=== PATIENT | female | born 1985 | race Hispanic/Latino ===

== ENCOUNTER → 2016-11-26 | Outpatient (CLI) | payer BC ==
[~2016-11-26] MED LIST: FRS325T PO; PREN1TAB39 PO
--- NOTE | 2016-11-26 12:56 | Diagnostic Imaging Report ---
EXAMINATION: OB ultrasound. INDICATION: Check size and dates. FINDINGS: There are no recent ultrasound examinations available for comparison. There is a gestational sac within the uterus containing a single live fetus. heart motion is noted and a rate of 181 bpm is recorded. The crown-rump length suggests the estimated gestational age is 8 weeks 6 days +/- 1 week. There are no obvious abnormalities identified. The amniotic fluid volume is within normal limits. At this time, it is not certain where the placenta will develop. Both ovaries are identified and are unremarkable. There is no solid pelvic mass or free fluid collection noted. IMPRESSION: 1. There is single live intrauterine of approximately 8 weeks 6 days gestation +/- 1 week. The EDC is July 02, 2017. 2. There are no obvious abnormalities identified. If a more sensitive evaluation of the anatomy is desired, then a short-term (10-12 weeks) follow-up ultrasound exam should be obtained. Dictated by: Dictated on workstation # [id number]
== END ==
LOC: RAD 11:13
PROVIDERS: ATTEND Family Medicine
DX: Z34.81 Encounter for supervision of other normal pregnancy, first trimester (principal)
CPT/HCPCS: 76801; 76817

== ENCOUNTER → 2017-02-08 | Outpatient (CLI) | payer BC, MEDICAID ==
--- NOTE | 2017-02-08 14:24 | Diagnostic Imaging Report ---
INDICATION: assessment. FINDINGS: Obstetrical ultrasonography reveals gonsalves intrauterine gestation in transverse presentation. Amniotic fluid level is unremarkable. There is cardiac activity present with a rate of 161 beats per minute. The placenta is posterior and in a low position. No definite previa is documented. No anomaly is identified however four-chamber view of the heart and three-vessel cord could not be documented. biometry indicates gestational age of 19 weeks and 4 days. This corresponds with age predicted by ultrasound examination of 11/26/2016. IMPRESSION: Unremarkable obstetrical ultrasound with estimated gestational age of 19 weeks and 3 days. There has been normal progression since previous study. Additional anatomic survey could be performed later in the second trimester for assessment of the heart and umbilical cord. Dictated by: Dictated on workstation # [id number]
== END ==
LOC: RAD 09:58
PROVIDERS: ATTEND Family Medicine
DX: Z34.82 Encounter for supervision of other normal pregnancy, second trimester (principal); Z13.0 Encounter for screening for diseases of the blood and blood-forming organs and certain disorders involving the immune mechanism; Z3A.19 19 weeks gestation of pregnancy
CPT/HCPCS: 76805

== ENCOUNTER → 2017-03-13 | Outpatient (CLI) | payer BC, MEDICAID ==
--- NOTE | 2017-03-13 17:52 | Diagnostic Imaging Report ---
INDICATION: Incomplete survey on previous study of 02/08/2017. COMPARISON: Limited study performed and compared with 02/08/2017. FINDINGS: On the prior study, the four-chamber heart view and three-vessel cord could not be visualized. On today's study, normal-appearing four-chamber heart view and three-vessel cord were seen. heart rate is 130 beats per minute. The fetus is in breech presentation at this time. IMPRESSION: Limited study performed to evaluate the structures which were not well seen on the previous study of 02/08/2017. On today's study, four-chamber heart view was unremarkable and there was a three-vessel cord detected. The rest of the survey was not repeated. heart rate is 130 beats per minute. Dictated by: Dictated on workstation # [id number]
== END ==
LOC: RAD 11:10
PROVIDERS: ATTEND Family Medicine
DX: Z34.92 Encounter for supervision of normal pregnancy, unspecified, second trimester (principal); Z36 Encounter for antenatal screening of mother
CPT/HCPCS: 76816

== ENCOUNTER → 2017-04-04 | Outpatient (CLI) | payer BC, MEDICAID | LOC: LAB 10:09 | PROVIDERS: ATTEND Family Medicine | DX: O99.810 Abnormal glucose complicating pregnancy (principal) | CPT/HCPCS: 36415; 82951; 82952; 82962 ==

== ENCOUNTER → 2017-04-16 | Outpatient (CLI) | payer BC, MEDICAID ==
--- NOTE | 2017-04-16 16:55 | Diagnostic Imaging Report ---
INDICATION: Low-lying placenta, followup. TECHNIQUE: Multiple real-time grayscale images were obtained over the gravid uterus. COMPARISON: 03/13/2017. FINDINGS: Cervical length is approximately 6.7 cm. Fetus is currently in a cephalic presentation. Placenta is posterior and without previa. Normal amount of amniotic fluid. Biometrical measurements are as follows: Biparietal 7.8 cm, age 31 weeks 3 days. Head circumference 29.1 cm, age 32 weeks 1 days. Abdominal circumference 24.9 cm, age 29 weeks 1 days. Femur length 5.7 cm, age 29 weeks 6 days. Sonographic estimate age: 30 weeks 5 days. Sonographic estimated date of delivery: 06-20-17. Estimated Weight: 1458 gm (+/- 213 gm). LMP percentile: 40%. heart rate: 149 beats per minute. number: 1 of 1. IMPRESSION: Single viable intrauterine , currently in a cephalic presentation. Sonographically estimated age is 30 weeks 5 days for an estimated date of delivery of June 20, 2017. This is approximately 12 days advanced compared to initial baseline ultrasound imaging. Dictated by: Dictated on workstation # [id number]
== END ==
LOC: RAD 13:03
PROVIDERS: ATTEND Family Medicine
DX: O44.43 Low lying placenta NOS or without hemorrhage, third trimester (principal); Z3A.30 30 weeks gestation of pregnancy
CPT/HCPCS: 76816

== ENCOUNTER 2017-06-26 06:06 | Inpatient (IN) | payer BC, MEDICAID ==
[~2017-06-26] VITALS: Ht 154.9 cm; Wt 86.3 kg
[2017-06-26] VITALS (50 sets, daily range): BP systolic 71–139; BP diastolic 55–82
--- OUTSIDE RECORDS SUMMARY | 2017-06-26 06:12 | XMS REPORT | Continuity of Care Document ---
Author Author [facility] Organization [facility] Address Unknown Phone Unavailable Allergies Active Description Code Type Severity Reaction Onset Reported/Identified Relationship to Patient Clinical Status Yes No Known Drug Allergies [id number] Drug Allergy Unknown N/ A 12/25/2011 Medications Problems Date Dx Coded Attending Type Code Diagnosis Diagnosed By 07/05/2011 V04.81 Flu Dx (3 Yrs And Above, Im) 07/05/2011 V22.0 , Normal First 07/05/2011 V04.81 Flu Dx (3 Yrs And Above, Im) 07/05/2011 V22.0 , Normal First 07/05/2011 RAJOTTE SILVER DESIGNER, EM A V04.81 Flu Dx (3 Yrs And Above, Im) 07/05/2011 RAJOTTE SILVER DESIGNER, EM A V22.0 , Normal First 07/05/2011 RAJOTTE SILVER DESIGNER, EM A V04.81 Flu Dx (3 Yrs And Above, Im) 07/05/2011 RAJOTTE SILVER DESIGNER, EM A V22.0 , Normal First 07/05/2011 KOCH DO, KIARA K V04.81 Flu Dx (3 Yrs And Above, Im) 07/05/2011 KOCH DO, KIARA K V22.0 , Normal First 07/05/2011 RAJOTTE SILVER DESIGNER, EM A V04.81 Flu Dx (3 Yrs And Above, Im) 07/05/2011 RAJOTTE SILVER DESIGNER, EM A V22.0 , Normal First 07/05/2011 YEIMY SILVER DESIGNER, KARLI A V04.81 Flu Dx (3 Yrs And Above, Im) 07/05/2011 YEIMY SILVER DESIGNER, KARLI A V22.0 , Normal First 07/26/2011 V72.31 Edge Worker Exam, Routine 07/26/2011 V74.5 Std Screen 07/26/2011 V72.31 Edge Worker Exam, Routine 07/26/2011 V74.5 Std Screen 07/26/2011 RAJOTTE SILVER DESIGNER, EM A V72.31 Edge Worker Exam, Routine 07/26/2011 RAJOTTE SILVER DESIGNER, EM A V74.5 Std Screen 07/26/2011 RAJOTTE SILVER DESIGNER, EM A V72.31 Edge Worker Exam, Routine 07/26/2011 RAJOTTE SILVER DESIGNER, EM A V74.5 Std Screen 07/26/2011 KIARA KOCH DO V72.31 Edge Worker Exam, Routine 07/26/2011 KOCH KIARA GRADY K V74.5 Std Screen 07/26/2011 RAJOTTE SILVER DESIGNER, EM A V72.31 Edge Worker Exam, Routine 07/26/2011 RAJOTTE SILVER DESIGNER, EM A V74.5 Std Screen 07/26/2011 YEIMY SILVER DESIGNER, KARLI A V72.31 Edge Worker Exam, Routine 07/26/2011 YEIMY SILVER DESIGNER, KARLI A V74.5 Std Screen 11/07/2011 641.90 Compl Of - Bleeding 11/07/2011 641.90 Compl Of - Bleeding 11/07/2011 RAJOTTE SILVER DESIGNER, EM A 641.90 Compl Of - Bleeding 11/07/2011 RAJOTTE SILVER DESIGNER, EM A 641.90 Compl Of - Bleeding 11/07/2011 KIARA KOCH DO 641.90 Compl Of - Bleeding 11/07/2011 RAJOTTE SILVER DESIGNER, EM A 641.90 Compl Of - Bleeding 11/07/2011 YEIMY SILVER DESIGNER, KARLI A 641.90 Compl Of - Bleeding 12/07/2011 698.9 Pruritus Nos 12/07/2011 782.1 Rash 12/07/2011 784.0 Headache 12/07/2011 V22.2 Incidental 12/07/2011 698.9 Pruritus Nos 12/07/2011 782.1 Rash 12/07/2011 784.0 Headache 12/07/2011 V22.2 Incidental 12/07/2011 RAJOTTE SILVER DESIGNER, EM A 698.9 Pruritus Nos 12/07/2011 RAJOTTE SILVER DESIGNER, EM A 782.1 Rash 12/07/2011 RAJOTTE SILVER DESIGNER, EM A 784.0 Headache 12/07/2011 RAJOTTE SILVER DESIGNER, EM A V22.2 Incidental 12/07/2011 RAJOTTE SILVER DESIGNER, EM A 698.9 Pruritus Nos 12/07/2011 RAJOTTE SILVER DESIGNER, EM A 782.1 Rash 12/07/2011 RAJOTTE SILVER DESIGNER, EM A 784.0 Headache 12/07/2011 RAJOTTE SILVER DESIGNER, EM A V22.2 Incidental 12/07/2011 KOCH DO, KIARA K 698.9 Pruritus Nos 12/07/2011 KOCH DO, KIARA K 782.1 Rash 12/07/2011 KOCH DO, KIARA K 784.0 Headache 12/07/2011 KOCH DO, KIARA K V22.2 Incidental 12/07/2011 RAJOTTE SILVER DESIGNER, EM A 698.9 Pruritus Nos 12/07/2011 RAJOTTE SILVER DESIGNER, EM A 782.1 Rash 12/07/2011 RAJOTTE SILVER DESIGNER, EM A 784.0 Headache 12/07/2011 RAJOTTE SILVER DESIGNER, EM A V22.2 Incidental 12/07/2011 YEIMY SILVER DESIGNER, KARLI A 698.9 Pruritus Nos 12/07/2011 YEIMY SILVER DESIGNER, KARLI A 782.1 Rash 12/07/2011 YEIMY SILVER DESIGNER, KARLI A 784.0 Headache 12/07/2011 YEIMY SILVER DESIGNER, KARLI A V22.2 Incidental 12/12/2011 796.2 ELEVATED BLOOD PRESSURE READING WITHOUT DIAGNOSIS OF HYPERTENSION 12/12/2011 796.2 ELEVATED BLOOD PRESSURE READING WITHOUT DIAGNOSIS OF HYPERTENSION 12/12/2011 RAJROBBIEE SILVER DESIGNER, EM A 796.2 ELEVATED BLOOD PRESSURE READING WITHOUT DIAGNOSIS OF HYPERTENSION 12/12/2011 RAJOTTE SILVER DESIGNER, EM A 796.2 ELEVATED BLOOD PRESSURE READING WITHOUT DIAGNOSIS OF HYPERTENSION 12/12/2011 KOCH DO, KIARA K 796.2 ELEVATED BLOOD PRESSURE READING WITHOUT DIAGNOSIS OF HYPERTENSION 12/12/2011 RAJOTTE SILVER DESIGNER, EM A 796.2 ELEVATED BLOOD PRESSURE READING WITHOUT DIAGNOSIS OF HYPERTENSION 12/12/2011 YEIMY SILVER DESIGNER, KARLI A 796.2 ELEVATED BLOOD PRESSURE READING WITHOUT DIAGNOSIS OF HYPERTENSION 02/05/2012 780.79 fatigue 02/05/2012 V24.2 F/U, ROUTINE 02/05/2012 V25.49 CONTRACEPTION SURVEILLANCE (REPEAT RX) 02/05/2012 V25.9 CONTRACEPTION MANAGEMENT 02/05/2012 V76.2 CERVICAL CANCER SCREENING (PAP SMEAR) 02/05/2012 780.79 fatigue 02/05/2012 V24.2 F/U, ROUTINE 02/05/2012 V25.49 CONTRACEPTION SURVEILLANCE (REPEAT RX) 02/05/2012 V25.9 CONTRACEPTION MANAGEMENT 02/05/2012 V76.2 CERVICAL CANCER SCREENING (PAP SMEAR) 02/05/2012 ISABELL CLINE EM A 780.79 fatigue 02/05/2012 ISABELL CLINE EM A V24.2 F/U, ROUTINE 02/05/2012 ISABELL CLINE EM A V25.49 CONTRACEPTION SURVEILLANCE (REPEAT RX) 02/05/2012 ISABELL CLINE EM A V25.9 CONTRACEPTION MANAGEMENT 02/05/2012 ISABELL CLINE EM A V76.2 CERVICAL CANCER SCREENING (PAP SMEAR) 02/05/2012 ISABELL CLINE EM A 780.79 fatigue 02/05/2012 ISABELL CLINE EM A V24.2 F/U, ROUTINE 02/05/2012 ISABELL CLINE EM A V25.49 CONTRACEPTION SURVEILLANCE (REPEAT RX) 02/05/2012 ISABELL CLINE EM A V25.9 CONTRACEPTION MANAGEMENT 02/05/2012 ISABELL CLINE EM A V76.2 CERVICAL CANCER SCREENING (PAP SMEAR) 02/05/2012 KOCH DO KIARA K 780.79 fatigue 02/05/2012 KOCH DO KIARA K V24.2 F/U, ROUTINE 02/05/2012 KOCH DO KIARA K V25.49 CONTRACEPTION SURVEILLANCE (REPEAT RX) 02/05/2012 KOCH DO KIARA K V25.9 CONTRACEPTION MANAGEMENT 02/05/2012 KOCH DO KIARA K V76.2 CERVICAL CANCER SCREENING (PAP SMEAR) 02/05/2012 ISBAELL CLINE EM A 780.79 fatigue 02/05/2012 ISABELL CLINE EM A V24.2 F/U, ROUTINE 02/05/2012 ISABELL CLINE EM A V25.49 CONTRACEPTION SURVEILLANCE (REPEAT RX) 02/05/2012 ISABELL CLINE EM A V25.9 CONTRACEPTION MANAGEMENT 02/05/2012 EM WHYTE APRN V76.2 CERVICAL CANCER SCREENING (PAP SMEAR) 02/05/2012 KARLI GAFFNEY APRN 780.79 fatigue 02/05/2012 KARLI GAFFNEY APRN V24.2 F/U, ROUTINE 02/05/2012 KARLI GAFFNEY APRN V25.49 CONTRACEPTION SURVEILLANCE (REPEAT RX) 02/05/2012 KARLI GAFFNEY APRN V25.9 CONTRACEPTION MANAGEMENT 02/05/2012 KARLI GAFFNEY APRN V76.2 CERVICAL CANCER SCREENING (PAP SMEAR) 02/11/2012 788.1 DYSURIA 02/11/2012 788.1 DYSURIA 02/11/2012 EM WHYTE APRN 788.1 DYSURIA 02/11/2012 EM WHYTE APRN 788.1 DYSURIA 02/11/2012 KIARA KOCH DO 788.1 DYSURIA 02/11/2012 EM WHYTE APRN 788.1 DYSURIA 02/11/2012 KARLI GAFFNEY APRN 788.1 DYSURIA 07/09/2012 V25.01 CONTRACEPTION - ORAL CONTRACEPTION 07/09/2012 V25.01 CONTRACEPTION - ORAL CONTRACEPTION 07/09/2012 EM WHYTE APRN V25.01 CONTRACEPTION - ORAL CONTRACEPTION 07/09/2012 EM WHYTE APRN V25.01 CONTRACEPTION - ORAL CONTRACEPTION 07/09/2012 KIARA KOCH DO V25.01 CONTRACEPTION - ORAL CONTRACEPTION 07/09/2012 EM WHYTE APRN V25.01 CONTRACEPTION - ORAL CONTRACEPTION 07/09/2012 KARLI GAFFNEY APRN V25.01 CONTRACEPTION - ORAL CONTRACEPTION 12/08/2012 465.9 UPPER RESPIRATORY INFECTION 12/08/2012 465.9 UPPER RESPIRATORY INFECTION 12/08/2012 EM WHYTE APRN 465.9 UPPER RESPIRATORY INFECTION 12/08/2012 EM WHYTE APRN 465.9 UPPER RESPIRATORY INFECTION 12/08/2012 KIARA KOCH DO 465.9 UPPER RESPIRATORY INFECTION 12/08/2012 EM WHYTE APRN 465.9 UPPER RESPIRATORY INFECTION 12/08/2012 YEIMY SILVER DESIGNER, KARLI A 465.9 UPPER RESPIRATORY INFECTION 01/20/2013 703.0 INGROWING TOENAIL 01/20/2013 ISABELL MORROWN, EM A 703.0 INGROWING TOENAIL 01/20/2013 ISABELL SILVER DESIGNER, EM A 703.0 INGROWING TOENAIL 01/20/2013 KOCH DO, KIARA K 703.0 INGROWING TOENAIL 01/20/2013 ISABELL SILVER DESIGNER, EM A 703.0 INGROWING TOENAIL 01/20/2013 YEIMY MORROWN, KARLI A 703.0 INGROWING TOENAIL 08/16/2014 KOCH DO, KIARA K V74.1 TB SCREENING 08/16/2014 TAMRAKun SILVER DESIGNER, EM A V74.1 TB SCREENING 08/16/2014 YEIMY MORROWN, KARLI A V74.1 TB SCREENING 12/08/2014 ISABELL MORROWN, EM A 564.00 CONSTIPATION 12/08/2014 TAMRAKun SILVER DESIGNER, EM A 789.04 ABDOMINAL PAIN LEFT LOWER QUADRANT 12/08/2014 YEIMY APRN, KARLI A 564.00 CONSTIPATION 12/08/2014 YEIMYGINNY MORROWN, KARLI A 789.04 ABDOMINAL PAIN LEFT LOWER QUADRANT 12/08/2014 ARMAAN MATIAS, DANUTA Baird Ot 599.70 12/08/2014 ARMAAN MATIAS, DANUTA Baird Ot 625.9 12/13/2014 YEIMY APRN, KARLI A V72.31 LABORER SAWMILL EXAM, ROUTINE 12/13/2014 YEIMY APRN, KARLI A V74.5 STD SCREEN 12/13/2014 YEIMY APRN, KARLI A V76.10 BREAST CANCER SCREENING 08/29/2016 ONELIA MATIAS, LATRICIA N Ot L68.0 HIRSUTISM 08/29/2016 ONELIA MATIAS, LATRICIA N Ot 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 08/29/2016 ONELIA MATIAS, LATRICIA N Ot L68.0 HIRSUTISM 08/29/2016 ONELIA MATIAS, LATRICIA N Ot 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 08/29/2016 ONELIA MATIAS, LATRICIA N Ot L68.0 HIRSUTISM 08/29/2016 ONELIA MATIAS, LATRICIA N Ot 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 08/31/2016 ONELIA MATIAS, LATRICIA N Ot L68.0 HIRSUTISM 08/31/2016 ONELIA MATIAS, LATRICIA N Ot 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 09/03/2016 ONELIA MATIAS, LATRICIA N Ot L68.0 HIRSUTISM 09/03/2016 ONELIA MATIAS, LATRICIA N Ot 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 09/05/2016 ONELIA MATIAS, LATRICIA N Ot L68.0 HIRSUTISM 09/05/2016 ONELIA MATIAS, LATRICIA N Ot 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 11/26/2016 ONELIA MATIAS, LATRICIA N Ot L68.0 HIRSUTISM 11/26/2016 ONELIA MATIAS, LATRICIA N Ot 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 11/27/2016 ILIANA GONG MD Ot Z34.81 ENCOUNTER FOR SUPRVSN OF NORMAL PREGNANC 12/06/2016 ILIANA GONG MD Ot Z34.81 ENCOUNTER FOR SUPRVSN OF NORMAL PREGNANC 02/08/2017 ONELIA MATIAS, LATRICIA N Ot L68.0 HIRSUTISM 02/08/2017 MORGAN ROUSSEAU MDIN N Ot 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 02/08/2017 ILIANA GONG MD Ot Z34.81 ENCOUNTER FOR SUPRVSN OF NORMAL PREGNANC 02/11/2017 ILIANA GONG MD Ot Z13.0 ENCNTR SCREEN FOR DIS OF THE BLD/BLD-FOR 02/11/2017 ILIANA GONG MD Ot Z34.82 ENCOUNTER FOR SUPRVSN OF NORMAL PREGNANC 02/11/2017 ILIANA GONG MD Ot Z3A.19 19 WEEKS GESTATION OF 02/22/2017 ILIANA GONG MD Ot Z13.0 ENCNTR SCREEN FOR DIS OF THE BLD/BLD-FOR 02/22/2017 ILIANA GONG MD Ot Z34.82 ENCOUNTER FOR SUPRVSN OF NORMAL PREGNANC 02/22/2017 ILIANA GONG MD Ot Z3A.19 19 WEEKS GESTATION OF 04/02/2017 ILIANA GONG MD Ot Z34.92 ENCNTR FOR SUPRVSN OF NORMAL PREG, UNSP, 04/02/2017 ILIANA GONG MD, Ot Z36 ENCOUNTER FOR SCREENING OF MOT 04/17/2017 ILIANA GONG MD, Ot O44.43 LOW LYING PLACENTA NOS OR WITHOUT HEMOR, 04/17/2017 ILIANA GONG MD, Ot Z3A.30 30 WEEKS GESTATION OF 04/17/2017 ILIANA GONG MD, Ot O99.810 ABNORMAL GLUCOSE COMPLICATING 04/25/2017 ILIANA GONG MD, Ot O44.43 LOW LYING PLACENTA NOS OR WITHOUT HEMOR, 04/25/2017 ILIANA GONG MD, Ot Z3A.30 30 WEEKS GESTATION OF Procedures Code Description [place] [address] TEST, URINE (IN-HOUSE) 03/03/2014 65201 THERAPUTIC INJ SQ/IM 08/16/2014 16801 TB TEST INTRADERMAL 08/16/2014 02217 UA LONG DIP 12/08 24944 GC/CHLAM PROBE (STATE) 12/13/2014 51751 PAP SMEAR 2014 Q0091 PAP SMEAR OBTAIN SMEAR 12/13/2014 34121 TRICHOMONAS (IN-HOUSE) 12/13/2014 Results Test Result Range Capillary blood glucose measurement by glucometer (mass/volume) - 04/04/17 10: 21 Capillary blood glucose measurement by glucometer (mass/volume) 81 mg/dL 70-110 Encounters ACCT No. Visit Date/Time Discharge Status Pt. Type Provider Facility Loc./Unit Complaint [id number] 04/16/2017 13:03:00 2016 23:59:59 CLS Outpatient ILIANA GONG MD [facility] RAD LOW LYING PLACENTA O44.42 [id number] 04/04/2017 10:09:00 2016 23:59:59 CLS Outpatient ILIANA GONG MD [facility] LAB O99.810 [id number] 03/13/2017 11:10:00 2016 23:59:59 CLS Outpatient ILIANA GONG MD [facility] RAD Z36 [id number] 02/08/2017 09:58:00 2016 23:59:59 CLS Outpatient ILIANA GONG MD [facility] RAD SURVEY [id number] 11/26/2016 11:13:00 2016 23:59:59 CLS Outpatient ILIANA GONG MD [facility] RAD DATING [id number] 08/28/2016 15:45:00 2015 23:59:59 CLS Outpatient LATRICIA ROUSSEAU MD [facility] RAD FEMALE HIRSUTISM [id number] 12/06/2014 11:15:00 2014 23:59:59 CLS Outpatient DANUTA CROOK MD [facility] RAD [id number] 12/13/2014 10:34:00 12/13/2014 23: 59:59 CLS Outpatient KARLI GAFFNEY APRN [id number] 12/08/2014 15:24:00 12/08/2014 23: 59:59 CLS Outpatient EM WHYTE APRN [id number] 08/16/2014 16:11:00 08/16/2014 23: 59:59 CLS Outpatient KIARA KOCH DO [id number] 03/03/2014 10:30:00 03/03/2014 23: 59:59 CLS Outpatient EM WHYTE APRN [id number] 09/21/2013 10:35:00 09/21/2013 23: 59:59 CLS Outpatient EM WHYTE APRN [id number] 01/20/2013 14:26:00 01/20/2013 23: 59:59 CLS Outpatient [id number] 12/08/2012 13:26:00 12/08/2012 23: 59:59 CLS Outpatient
--- OUTSIDE RECORDS SUMMARY | 2017-06-26 06:12 | XMS REPORT ---
Author Author BETH LU Organization [employer] Address Unknown Phone Unavailable Care Team Providers Care Denial Resolution Specialist Name Role Phone BETH LU CP Unavailable Allergies, Adverse Reactions, Alerts Substance Reaction Event Type N.K.D.A. Info Not Available Non Drug Allergy Problems Problem Type Condition Code Onset Dates Condition Status Problem Irregular periods N92.6 Active Problem Iron (Fe) deficiency anemia D50.9 Active Problem Chest pain R07.9 Active Problem Wellness examination Z00.00 Active Assessment Acute suppurative otitis media of left ear without spontaneous rupture of tympanic membrane, recurrence not specified H66.002 Active Medications Medication Code System Code Instructions Start Date End Date Status Dosage Iron [facility] [address]38 325 (65 Fe) MG Orally Once a day 1 tablet Ciprodex [facility] [address]-75 0.3-0.1 % Otic Twice a day Sep 21, 2016 4 drops into left ear Flonase Allergy Relief [facility] [address]-40 50 MCG/ACT Nasally twice a day x 14 days then prn 1 spray in each nostril Folic Acid [facility] [address]-78 1 MG Orally Once a day 1 tablet Amoxicillin [facility] [address]-06 500 MG Orally every 12 hrs Sep 21, 2016 Oct 01, 2016 1 capsule Procedures Procedure Coding System Code Date Office Visit, Est Pt., Level 3 CPT-4 45733 Sep 21, 2016 Vital Signs Date/Time: Sep 21, 2016 Cardiac Monitoring Heart Rate 84 bpm Weight 162.5 lbs Height 60 in BMI 31.73 Index Blood Pressure Diastolic 62 mmHg Blood Pressure Systolic 100 mmHg Results No Known Results Summary Purpose [employer] Submission
--- OUTSIDE RECORDS SUMMARY | 2017-06-26 06:12 | XMS REPORT ---
Author Author TERRY DOMINGO Organization [employer] Address Unknown Phone Unavailable Care Team Providers Care Mini Lab Operator Name Role Phone TERRY DOMINGO CP Unavailable Allergies, Adverse Reactions, Alerts Substance Reaction Event Type N.K.D.A. Info Not Available Non Drug Allergy Problems Problem Type Condition Code Onset Dates Condition Status Problem state, incidental V22.2 Active Problem Unspecified pruritic disorder 698.9 Active Problem Rash and other nonspecific skin eruption 782.1 Active Problem Acute sinusitis, unspecified 461.9 Active Problem Screening examination for venereal disease V74.5 Active Problem Surveillance of other previously prescribed contraceptive method V25.49 Active Problem Screening examination for pulmonary tuberculosis V74.1 Active Problem Ingrowing nail 703.0 Active Problem Encounter for dental examination and cleaning without abnormal findings Z01.20 Active Problem Routine follow-up V24.2 Active Problem Screening for malignant neoplasm of the cervix V76.2 Active Problem Other malaise and fatigue 780.79 Active Problem Unspecified contraceptive management V25.9 Active Problem Dysuria 788.1 Active Problem Elevated blood pressure reading without diagnosis of hypertension 796.2 Active Problem Unspecified breast screening V76.10 Active Problem Routine gynecological examination V72.31 Active Problem Unspecified constipation 564.00 Active Problem Abdominal pain, left lower quadrant 789.04 Active Problem General counseling for prescription of oral contraceptives V25.01 Active Problem Acute upper respiratory infections of unspecified site 465.9 Active Assessment Encounter for dental examination and cleaning without abnormal findings Z01.20 Active Problem Unspecified antepartum hemorrhage, unspecified as to episode of care 641.90 Active Problem Headache 784.0 Active Medications No Known Medications Procedures Procedure Coding System Code Date INTRAORL-PERIAPICAL 1 FILM 20195 CPT-4 D0220 Nov 02, 2015 PROPHYLAXIS - ADULT CPT-4 D1110 Nov 02, 2015 PERIODIC ORAL EXAMINATION CPT-4 D0120 Nov 02, 2015 Vital Signs Date/Time: Nov 02, 2015 Blood Pressure Diastolic 71 mmHg Blood Pressure Systolic 115 mmHg Height 60 in Results No Known Results Summary Purpose [employer] Submission
--- OUTSIDE RECORDS SUMMARY | 2017-06-26 06:12 | XMS REPORT ---
Author NESTOR Goel [facility] [employer] Address Unknown Phone Unavailable Care Team Providers Care Software Sales Representative Name Role Phone NESTOR NARAYAN Unavailable Allergies No Known Allergies Problems Problem Type Condition Code Onset Dates Condition Status Problem Irregular periods N92.6 Active Problem Iron (Fe) deficiency anemia D50.9 Active Problem Chest pain R07.9 Active Problem Wellness examination Z00.00 Active Medications Medication Code System Code Instructions Start Date End Date Status Dosage Atorvastatin Calcium [facility] [address]-70 10 mg Orally Once a day February 15, 2016 1 tablet Results No Known Results Summary Purpose [employer] Submission
--- OUTSIDE RECORDS SUMMARY | 2017-06-26 06:12 | XMS REPORT ---
Author NESTOR Goel Organization [employer] Address Unknown Phone Unavailable Care Team Providers Care Pond Supervisor Name Role Phone NESTOR NARAYAN CP Unavailable Allergies, Adverse Reactions, Alerts Substance Reaction Event Type N.K.D.A. Info Not Available Non Drug Allergy Problems Problem Type Condition Code Onset Dates Condition Status Assessment Wellness examination Z00.00 Active Problem Irregular periods N92.6 Active Problem Iron (Fe) deficiency anemia D50.9 Active Problem Chest pain R07.9 Active Assessment Irregular periods N92.6 Active Assessment Iron (Fe) deficiency anemia D50.9 Active Problem Wellness examination Z00.00 Active Assessment Chest pain R07.9 Active Medications No Known Medications Procedures Procedure Coding System Code Date ELECTROCARDIOGRAM, TRACING CPT-4 81087 February 08, 2016 Office Visit, Est Pt., Level 4 CPT-4 71319 February 08, 2016 ASSAY OF INSULIN CPT-4 36074 February 08, 2016 Vital Signs Date/Time: February 08, 2016 Temperature 97.8 F Weight 170.6 lbs Height 60 in BMI 33.31 Index Blood Pressure Diastolic 76 mmHg Blood Pressure Systolic 124 mmHg Cardiac Monitoring Heart Rate 76 bpm Results Name Result Date Reference Range Unit Abnormality Flag EKG, TRACING (IN-HOUSE) Summary Purpose [employer] Submission
--- OUTSIDE RECORDS SUMMARY | 2017-06-26 06:12 | XMS REPORT ---
Author Author EM WHYTE Organization [employer] Address Unknown Phone Unavailable Care Team Providers Care Vamp Creaser Name Role Phone EM WHYTE CP Unavailable Allergies No Known Allergies Problems Problem Type Condition Code Onset Dates Condition Status Problem Irregular periods N92.6 Active Problem Iron (Fe) deficiency anemia D50.9 Active Problem Chest pain R07.9 Active Assessment Otalgia of left ear H92.02 Active Problem Wellness examination Z00.00 Active Assessment Eustachian tube dysfunction, left H69.82 Active Medications Medication Code System Code Instructions Start Date End Date Status Dosage Flonase Allergy Relief [facility] [address]-02 50 MCG/ACT Nasally twice a day x 14 days then prn 1 spray in each nostril Iron [facility] [id number] 325 (65 Fe) MG Orally Once a day 1 tablet Procedures Procedure Coding System Code Date Office Visit, Est Pt., Level 3 CPT-4 69062 Sep 14, 2016 Vital Signs Date/Time: Sep 14, 2016 Cardiac Monitoring Heart Rate 72 bpm Weight 167.4 lbs Height 60 in BMI 32.69 Index Blood Pressure Diastolic 70 mmHg Blood Pressure Systolic 114 mmHg Results No Known Results Summary Purpose [employer] Submission
[2017-06-26] MEDS ORDERED: D5 LR IV SOLUTION 1,000 ML IV ONE (06:15)
[2017-06-26] MEDS ORDERED: MINERAL OIL CONCENTRATE 99.9% 15 ML UDC TOP PRN (06:30)
[2017-06-26] MEDS: D5 LR IV SOLUTION 1,000 ML IV SCH ×2 (06:35→14:31)
[2017-06-26] MEDS ORDERED: OXYTOCIN/NORMAL SALINE 500 ML IV SCH ×2 (06:36→18:11)
[2017-06-26 06:56] LABS: BASOPHILS % (AUTO) 0 % (0-10); EOSINOPHILS # (AUTO) 0.1 10^3/uL (0.0-0.3); EOSINOPHILS % (AUTO) 1 % (0-10); LYMPHOCYTES # (AUTO) 2.3 X 10^3 (1.0-4.0); LYMPHOCYTES % (AUTO) 22 % (12-44); MEAN CORPUSCULAR HEMOGLOBIN 27 PG (25-34); MEAN CORPUSCULAR HGB CONC 33 G/DL (32-36); MEAN CORPUSCULAR VOLUME 81 FL (80-99); MEAN PLATELET VOLUME 9.4 FL (7.4-10.4); MONOCYTES # (AUTO) 1.1 X 10^3 (0.0-1.0); MONOCYTES % (AUTO) 11 % (0-12); NEUTROPHILS # (AUTO) 6.7 X 10^3 (1.8-7.8); NEUTROPHILS % (AUTO) 66 % (42-75); PLATELET COUNT 190 10^3/uL (130-400); RED CELL DISTRIBUTION WIDTH 16.7 % (10.0-14.5); WHITE BLOOD COUNT 10.2 10^3/uL (4.3-11.0)
--- NOTE | 2017-06-26 08:51 | Labor Progress Note ---
Labor Progress Note Labor Progress Note Date Seen by Provider: Jun 26, 2017 Time Seen by Provider: 08:48 Subjective: Pt denies complaints. Contractions becoming stronger - on Pit 6 Objective: (Can we insert 24 hour vitals here?) Cervical exam: 4cm/70/-2 Consistency: soft Position: anterior Presentation: vtx heart tones: 140s beats per minute, good variability, [x] reactive Tocometer: irregular ctx Assessment/Plan: Denise Kruger is a 32 /Para / ,Gestational Age 39wks 6d here for IOL. AROM perfomed w/ amniohook, clear fluid, FHT reassuring CEFM/TOCO Continue pitocin per protocol Anesthesia: anticipate epidural Anticipate vaginal delivery. Vitals - Labs Vital Signs - I&O Vital Signs Date Time Temp Pulse Resp B/P (MAP) Pulse Ox O2 Delivery O2 Flow Rate FiO2 06/26/17 07:40 83 18 102/55 Room Air 06/26/17 07:25 98.6 94 18 120/68 Room Air 06/26/17 07:00 98.7 91 18 124/72 Room Air Labs Laboratory Tests 06/26/17 06:46: White Blood Count 10.2, Red Blood Count 4.60, Hemoglobin 12.3, Hematocrit 37, Mean Corpuscular Volume 81, Mean Corpuscular Hemoglobin 27, Mean Corpuscular Hemoglobin Concent 33, Red Cell Distribution Width 16.7H, Platelet Count 190, Mean Platelet Volume 9.4, Neutrophils (%) (Auto) 66, Lymphocytes (%) (Auto) 22, Monocytes (%) (Auto) 11, Eosinophils (%) (Auto) 1, Basophils (%) (Auto) 0, Neutrophils # (Auto) 6.7, Lymphocytes # (Auto) 2.3, Monocytes # (Auto) 1.1H, Eosinophils # (Auto) 0.1, Basophils # (Auto) 0.0 KIARA KOCH DO Jun 26, 2017 08:51
[2017-06-26] MEDS ORDERED: SUFENTA 0.6MCG/ML BUPIVA 0.125 100 ML ONE (09:52)
[2017-06-26] MEDS ORDERED: LACTATED RINGERS 1,000 ML IV ONE (09:52)
[2017-06-26] MEDS ORDERED: BUPIVACAINE 0.25% 30 ML (SENSORCAINE) VIAL ONE (10:17)
[2017-06-26] MEDS ORDERED: fentaNYL INJECTION 100 MCG/2 ML AMP ONE (10:17)
[2017-06-26] MEDS ORDERED: LACTATED RINGERS 1,000 ML IV SCH (10:56)
[2017-06-26] MEDS ORDERED: EPIDURAL (SUFENTA 0.6MCG/ML BUPIVA 0.125%) 100 ML BAG EPI PRN (11:00)
[2017-06-26] MEDS ORDERED: ONDANSETRON 4 MG/2 ML (SDV) Z0FRAN IV PRN (11:00)
[2017-06-26] MEDS ORDERED: diphenhydrAMINE 50 MG/ML INJ (BENADRYL) IV PRN (11:00)
[2017-06-26] MEDS ORDERED: NALOXONE 0.4 MG/ML 1 ML (NARCAN) VIAL IV PRN ×2 (11:00)
[2017-06-26] MEDS ORDERED: METOCLOPRAMIDE INJ 10 MG/2 ML (REGLAN) IV PRN (11:00)
--- NOTE | 2017-06-26 14:46 | History & Physical-OB ---
OB - Chief Complaint & HPI Date/Time Date of Admission: Date of Admission: Jun 26, 2017 at 6:06 am Time Seen by Provider: 13:00 Chief Complaint/History OB-Reason for Admission/Chief: Induction of Labor Hx : 2 Hx Para: 1 Expected Date of Delivery: Jun 27, 2017 Gestational Age in Weeks: 39 Gestational Age in Days: 6 History of Labs B+, antibody neg, RI, HIV/HepB/RPR NR, GC/chlamydia neg, 1 hour glucola normal, GBS neg Allergies and Home Medications Allergies Coded Allergies: No Known Drug Allergies (Unverified , 12/25/11) Home Medications Ferrous Sulfate 325 Mg Tablet, 1 TAB PO BID, (Reported) Vits W-Ca,Fe,Fa(<1MG) 1 Each Tablet, 1 TAB PO DAILY, (Reported) OB - History Hx of Present Care: Yes Ultrasounds: Normal mid trimester US Obstetrical Complications: None Medical Complications: None Information Induced Hypertension: No Maternal Gestational Diabetes: No Hemorrhage: No Obstetrical History Hx : 2 Hx Para: 1 Hx # Term Pregnancies: 1 Hx # Pregnancies: 0 Number of Living Children: 1 Hx Termination: No Hx Multiple Gestation: No Hx Stillbirth: No Hx Complication: No Hx Induced Hypertens: Yes Hx Maternal Gestational Diabet: No Hx Hemorrhage: No Delivery History Hx Dystocia: No Hx Forceps Assisted Delivery: No Hx Vacuum Extraction Assisted: No Hx Placenta Abnormality: No Hx Distress: No Hx Large For Gestational Age I: Yes Hx Small for Gestational Age I: No Hx Section: No Hx Vaginal Delivery Post C-Sec: No Hx Blood Disorders: No Adverse Rxn to Tranfusion: No Patient Past Medical History PMHx: none Social History/Family History HIV/AIDS: No Recent Infectious Disease Expo: No Sexually Transmitted Disease: No Alcohol Use: Denies Use Recreational Drug Use: No Smoking Cessation: Never smoker Immunizations Tetanus Booster (TDap): Less than 5yrs Date of Influenza Vaccine: Sep 03, 2011 Rubella: immune RPR/VDRL: Negative GBS Status: Negative HBsAG: Negative OB - Admission Exam Physical Exam Date Seen by Provider: Jun 26, 2017 Time Seen by Provider: 13:00 Vitals: Vital Signs 06/26/17 06/26/17 10:30 13:45 Temp 98.1 Pulse 73 Resp 18 B/P (MAP) 117/69 Pulse Ox 99 O2 Delivery Room Air HEENT: NCAT Cervical Dilatation: 4cm Labs Laboratory Tests Test 06/26/17 06:46 Range/Units White Blood Count 10.2 4.3-11.0 10^3/uL Red Blood Count 4.60 4.35-5.85 10^6/uL Hemoglobin 12.3 11.5-16.0 G/DL Hematocrit 37 35-52 % Mean Corpuscular Volume 81 80-99 FL Mean Corpuscular Hemoglobin 27 25-34 PG Mean Corpuscular Hemoglobin Concent 33 32-36 G/DL Red Cell Distribution Width 16.7 H 10.0-14.5 % Platelet Count 190 130-400 10^3/uL Mean Platelet Volume 9.4 7.4-10.4 FL Neutrophils (%) (Auto) 66 42-75 % Lymphocytes (%) (Auto) 22 12-44 % Monocytes (%) (Auto) 11 0-12 % Eosinophils (%) (Auto) 1 0-10 % Basophils (%) (Auto) 0 0-10 % Neutrophils # (Auto) 6.7 1.8-7.8 X 10^3 Lymphocytes # (Auto) 2.3 1.0-4.0 X 10^3 Monocytes # (Auto) 1.1 H 0.0-1.0 X 10^3 Eosinophils # (Auto) 0.1 0.0-0.3 10^3/uL Basophils # (Auto) 0.0 0.0-0.1 10^3/uL OB - Assessment/Plan/Diagnosis Assessment Assessment: induction of labor, rupture of membranes Plan Plan: Induction Induction Method: per Misoprostol Protocol ILIANA GONG MD Jun 26, 2017 2:46 pm
--- NOTE | 2017-06-26 18:09 | OB Labor & Delivery Record ---
Vag Delivery Note Vag Delivery Note Date of Delivery: 06/26/17 Preoperative Diagnosis: Denise Kruger is a (32 /Para 2 / 1, Gestational Age (wks)39with 6d Postoperative Diagnosis: Same Surgeon: ILIANA GONG Brick Sorter: Natalie Flores, MS3 Anesthesia: epidural Delivery Type: spontaneous vaginal Findings: [] Viable male , apgars 8/9, weight 9#0 Lacerations: first degree perineal, bilateral periurethral abrasions Intact placenta with 3 vessel cord. No nuchal cord, body cord or shoulder dystocia Estimated Blood Loss: 250 ml Complications: None Condition: Stable Description of Procedure: The patient is a 32 yo G2 now P2 who presented for IOL. She was admitted and informed consent was obtained. Her labor course was unremarkable. She progressed to complete dilatation and began to push. She was then set up for delivery. The infant's head was delivered atraumatically in the JOSELUIS position. The shoulders and remainder of the infant's body were then delivered without difficulty. Upon delivery, the infant was vigorous and placed on maternal abdomen. After a brief delay the cord was doubly clamped and cut and the infant was handed off to the pediatric staff. An intact placenta with 3-vessel cord delivered via Corie and there was found to be minimal bleeding.~ Vigorous fundal massage was performed and the fundus was found to be firm. IV oxytocin was given. Examination of the vagina and perineum revealed a first degree perineal laceration repaired in the usual fashion with 3 -0 rapide suture. Following the repair, sponge, instrument and needle counts were correct. Mom and baby were both in stable condition in the labor suite. Vitals - Labs Vital Signs - I&O Vital Signs 06/26/17 06/26/17 14:15 16:00 Temp 96.4 Pulse 72 Resp 18 B/P (MAP) 125/73 Pulse Ox 100 O2 Delivery Room Air Labs Laboratory Tests 06/26/17 06:46: White Blood Count 10.2, Red Blood Count 4.60, Hemoglobin 12.3, Hematocrit 37, Mean Corpuscular Volume 81, Mean Corpuscular Hemoglobin 27, Mean Corpuscular Hemoglobin Concent 33, Red Cell Distribution Width 16.7H, Platelet Count 190, Mean Platelet Volume 9.4, Neutrophils (%) (Auto) 66, Lymphocytes (%) (Auto) 22, Monocytes (%) (Auto) 11, Eosinophils (%) (Auto) 1, Basophils (%) (Auto) 0, Neutrophils # (Auto) 6.7, Lymphocytes # (Auto) 2.3, Monocytes # (Auto) 1.1H, Eosinophils # (Auto) 0.1, Basophils # (Auto) 0.0 ILIANA GONG MD Jun 26, 2017 6:09 pm
[2017-06-26] MEDS ORDERED: WITCH HAZEL(TUCKS) 40 EA JAR TOP PRN (18:15)
[2017-06-26] MEDS ORDERED: TETANUS,DIPTH,PERTUSS P/F (BOOSTRIX) 0.5 ML VIAL IM ONE (18:15)
[2017-06-26] MEDS ORDERED: BENZOCAINE/MENTHOL (DERMOPLAST) 56 ML CAN TP PRN (18:15)
[2017-06-26] MEDS ORDERED: MEASLES,MUMPS,RUBELLA 1 EA INJ SQ ONE (18:15)
[2017-06-26] MEDS ORDERED: CATHETER FLUSH 10 ML SYR IV SCH (22:00)
[2017-06-26] MEDS: IBUPROFEN 600 MG (MOTRIN) TAB PO SCH (22:27)
[2017-06-27] VITALS: BP 113/70
[2017-06-27 04:00] VITALS: BP 120/68
[2017-06-27] MEDS: IBUPROFEN 600 MG (MOTRIN) TAB PO SCH ×2 (05:00→13:13)
[2017-06-27 06:40] LABS: BASOPHILS % (AUTO) 0 % (0-10); EOSINOPHILS # (AUTO) 0.1 10^3/uL (0.0-0.3); EOSINOPHILS % (AUTO) 1 % (0-10); LYMPHOCYTES # (AUTO) 2.2 X 10^3 (1.0-4.0); LYMPHOCYTES % (AUTO) 19 % (12-44); MEAN CORPUSCULAR HEMOGLOBIN 27 PG (25-34); MEAN CORPUSCULAR HGB CONC 33 G/DL (32-36); MEAN CORPUSCULAR VOLUME 82 FL (80-99); MEAN PLATELET VOLUME 9.9 FL (7.4-10.4); MONOCYTES # (AUTO) 1.2 X 10^3 (0.0-1.0); MONOCYTES % (AUTO) 10 % (0-12); NEUTROPHILS # (AUTO) 8.4 X 10^3 (1.8-7.8); NEUTROPHILS % (AUTO) 71 % (42-75); PLATELET COUNT 179 10^3/uL (130-400); RED BLOOD COUNT 4.29 10^6/uL (4.35-5.85); RED CELL DISTRIBUTION WIDTH 16.8 % (10.0-14.5); WHITE BLOOD COUNT 11.9 10^3/uL (4.3-11.0)
[2017-06-27] MEDS ORDERED: PRENATAL VITAMIN 1 EA TAB PO SCH (07:00)
[2017-06-27 08:00] VITALS: BP 131/70
--- NOTE | 2017-06-27 08:52 | Discharge Summary ---
Diagnosis/Chief Complaint Date of Admission Jun 26, 2017 at 06:06 Date of Discharge Jun 27, 2017 Admission Diagnosis Admission Diagnosis IOL at 39w6d Discharge Diagnosis s/p 06/26/17 at 39w6d 1st degree perineal and bilateral periurethral lacerations Discharge Summary-OBS Procedures None. Discharge Physical Examination Allergies: Coded Allergies: No Known Drug Allergies (Unverified , 12/25/11) Vitals & I&Os Vital Sign - Last 12Hours Date Time Temp Pulse Resp B/P (MAP) Pulse Ox O2 Delivery O2 Flow Rate FiO2 06/27/17 04:00 98.1 72 18 120/68 97 Room Air General Appearance: Alert, Oriented X3, Cooperative Abdominal: Soft, Other (uterus firm) Hospital Course Routine care Labs Laboratory Tests 06/27/17 06:07: White Blood Count 11.9H, Red Blood Count 4.29L, Hemoglobin 11.5, Hematocrit 35, Mean Corpuscular Volume 82, Mean Corpuscular Hemoglobin 27, Mean Corpuscular Hemoglobin Concent 33, Red Cell Distribution Width 16.8H, Platelet Count 179, Mean Platelet Volume 9.9, Neutrophils (%) (Auto) 71, Lymphocytes (%) (Auto) 19, Monocytes (%) (Auto) 10, Eosinophils (%) (Auto) 1, Basophils (%) (Auto) 0, Neutrophils # (Auto) 8.4H, Lymphocytes # (Auto) 2.2, Monocytes # (Auto) 1.2H, Eosinophils # (Auto) 0.1, Basophils # (Auto) 0.0 Discharge Instructions to patient/family Please see electonic discharge instructions given to patient. Discharge Medications Reviewed and agree with Discharge Medication list on patient's Discharge Instruction sheet Clinical Quality Measures DVT/VTE Risk/Contraindication: Risk Factor Score Per Nursin RFS Level Per Nursing on Admit: 1=Low/No VTE PPX Copy Copies To 1: ILIANA GONG MD, LINDA K DO Jun 27, 2017 08:52
[2017-06-27] MEDS ORDERED: IBUP-1773 PO (08:53)
--- NOTE | 2017-06-27 08:55 | Discharge Instructions ---
Discharge Inst-Women's Serv Depart Medications New, Converted or Re-Newed RX: Other (will take OTC) New Medications: Ibuprofen (Ibuprofen) 600 Mg Tablet 600 MG PO Q6H PRN for CRAMPS, #90 TAB Continued Medications: Vits W-Ca,Fe,Fa(<1MG) () 1 Each Tablet 1 TAB PO DAILY Discontinued Medications: Ferrous Sulfate (Iron) 325 Mg Tablet 1 TAB PO BID, TAB Follow Up/Instructions Goal/Follow Up: Follow-up with Dr. Lainez in 6wk Activity Activity: Activity as Tolerated Nothing Inside Vagina: No Douching, No [place], No Tampons Diet Discharge Diet: No Restrictions Symptoms to Report to DrShahzad: Bleeding Excessive, Pain Increased, Fever Over 101 Degrees F, Vaginal Bleeding Increase, Vaginal Discharge Foul, Shortness of Breath For Any Problems or Questions: Contact Your Physician KIARA KOCH DO Jun 27, 2017 08:55
[2017-06-27 12:00] VITALS: BP 122/68
--- NOTE | 2017-06-27 13:04 | Anesthesia-Regional Post-Op ---
Regional Patient Condition Mental Status: Alert, Oriented x3 Circulation: Same as Pre-Op Headache: Absent Sensation: Full Recovery Motor Block: Absent Post Op Complications Complications None Follow Up Care/Instructions Patient Instructions None needed. Anesthesia/Patient Condition Patient is doing well, no complaints, stable vital signs, no apparent adverse anesthesia problems. No complications reported per nursing. SEAN FOOTE CRNA Jun 27, 2017 13:04
[2017-06-27 16:30] VITALS: BP 115/66
== END 2017-06-27 20:26 | disposition home or self-care (01) | DRG 775 ==
LOC: LDRP 06:06
PROVIDERS: ADMIT Family Medicine; ATTEND Family Medicine
PROC: 10E0XZZ Delivery of Products of Conception, External Approach (ICD-10-PCS; principal; 2017-06-26)
PROC: 0HQ9XZZ Repair Perineum Skin, External Approach (ICD-10-PCS; 2017-06-26)
DX: O13.3 Gestational [pregnancy-induced] hypertension without significant proteinuria, third trimester (principal); O70.0 First degree perineal laceration during delivery; Z3A.39 39 weeks gestation of pregnancy; Z37.0 Single live birth
CPT/HCPCS: 36415; 85025; 86850; 86900; 86901

== ENCOUNTER 2018-11-20 16:17 | Outpatient (RCR) | payer BC ==
[~2018-11-20 16:17] MED LIST changes: +IBUP-1773 PO
== END 2018-12-18 14:28 | disposition home or self-care (01) ==
PROVIDERS: ATTEND Nurse Practitioner Family
DX: M53.3 Sacrococcygeal disorders, not elsewhere classified (principal)